=== PATIENT | female | born 1980 | race Caucasian/White ===

== ENCOUNTER → 2025-06-02 12:39 | Outpatient (REF) | payer OTHER, SELFPAY | LOC: HWWDC 12:39 | PROVIDERS: ATTENDING PHYSICIAN Family Medicine; REFERRING PHYSICIAN Obstetrics & Gynecology Gynecology | DX: Z12.31 Encounter for screening mammogram for malignant neoplasm of breast (principal) | CPT/HCPCS: 77063; 77067 ==